=== PATIENT | male | born 1990 | race Caucasian/White ===

== ENCOUNTER → 2018-03-18 | Outpatient (CLI) | payer BC, OTHER ==
[~2018-03-18] MED LIST: ADDERALL XR 3030 MG PO; BENADRYL25 MG PO; DOXYCYCLINE 10100 MG PO; EPIPEN 2-P0.3 MG/0.3 IM; HIBICLENS120 ML TP; MEDROL DOSPAK21 TAB PO; MUPIROCIN22 GM TOP; PEPCID40 MG PO; PREDNISONE 20 M20 MG PO; PREDNISONE50 MG PO
== END ==
LOC: CAT 15:54
DX: N20.0 Calculus of kidney (principal); R31.9 Hematuria, unspecified; R19.5 Other fecal abnormalities